=== PATIENT | female | born 1970 | race Caucasian/White ===

== ENCOUNTER 2016-08-14 09:24 | Emergency (ER) | payer BC, OTHER ==
[~2016-08-14] VITALS: Ht 152.4 cm; Wt 86.2 kg
[2016-08-14 09:32] VITALS: TEMP 36.9; Ht 152.4 cm; Wt 86.2 kg
[2016-08-14] MEDS ORDERED: SODIUM CHLORIDE 0.9% 1000ML 500 ML IV STA (09:38)
[2016-08-14] MEDS ORDERED: MECLIZINE HCL 25 MG TAB PO STA (09:38)
[2016-08-14 09:46] VITALS: O2SAT 100
[2016-08-14 10:16] LABS: URINE APPEARANCE CLEAR (CLEAR); URINE BILIRUBIN NEG (NEG); URINE COLOR YELLOW; URINE NITRITE NEG (NEG); URINE PH 7.5 (4.5-7.5); URINE SPECIFIC GRAVITY 1.003 (1.000-1.030); UROBILINOGEN NEG (NEG); ZZUR CULT IF INDIC CLEAN CATCH NO
[2016-08-14 10:19] LABS: MANUAL MICROSCOPIC REQUIRED? NO; REVIEW REQ? NO
[2016-08-14] MEDS ORDERED: [UNRECOGNIZED DRUG - CODE] (10:26)
[2016-08-14] MEDS ORDERED: CLR10 PO (10:26)
[2016-08-14] MEDS ORDERED: CALC500C70 PO (10:26)
[2016-08-14] MEDS ORDERED: MULT-506 PO (10:26)
[2016-08-14] MEDS ORDERED: OMEG10002 (10:26)
--- NOTE | 2016-08-14 10:41 | EMERGENCY ROOM VISIT NOTE ---
History Report prepared by Mattibracheal: Nayan Staples Under the Supervision of: Dr. Bulmaro Villasenor M.D. 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 She describes a room-spinning sensation, including when her eyes are closed. The patient was also feeling lightheadedness concurrently. She did not lose consciousness. She also complains of some nausea and a constant headache for the past week. The headache is mostly frontal. Headaches are common for her. She notes that the air "feels heavy." She denies any fevers, chest pain, cough, congestion, sore throat, rhinorrhea, vomiting, or diarrhea. 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 The patient started to feel better in the ambulance en route to the ED, but still doesn't feel right. The patient has a history of vertigo but does not feel that she is having vertigo symptoms. She finished a course of antibiotics for otitis media recently. Source of History: patient Onset: 1.5 hours ASSISTANT OFFICE MANAGER Position: other (global) Quality: other (dizziness) Timing: other (improving) Associated Symptoms: + headache, No LOC, No chest pain, No cough, No diarrhea, No fevers, No sorethroat, No vomiting Review of Systems See HPI for pertinent positives & negatives. A total of 10 systems reviewed and were otherwise negative. Past Medical & Surgical Medical Problems: (1) Otitis media (2) Vertigo Family History No pertinent family history Social History Occupation Status: employed Current/Historical Medications Scheduled Calcium/Vitamin D (Os-Horacio 500 Plus D), 1 TAB PO DAILY Loratadine (Claritin), 10 MG PO DAILY Meclizine HCl (Meclizine HCl), 1-2 TAB PO Q6H Multivitamin (Multivitamin), 1 TAB PO DAILY Miscellaneous Medications [place]-3 Fatty Acids (Fish Oil) Stannous Fluoride (S[employer]) Allergies Coded Allergies: No Known Allergies (Verified Allergy, Unknown, 08/24/02) Uncoded Allergies: N (Allergy, Unknown, 08/24/02) Physical Exam Vital Signs Date Time Temp Pulse Resp B/P Pulse Ox O2 Delivery O2 Flow Rate FiO2 2/3/17 13:03 102 15 166/97 90 Room Air 08/14/16 12:42 58 20 118/80 08/14/16 12:41 55 126/78 63 114/81 58 118/80 08/14/16 11:54 56 16 08/14/16 11:28 91/63 08/14/16 11:24 57 15 08/14/16 10:58 109/70 08/14/16 10:54 62 19 08/14/16 10:52 90/62 08/14/16 09:56 65 08/14/16 09:54 65 17 08/14/16 09:47 120/77 08/14/16 09:46 100 Room Air 08/14/16 09:36 66 136/87 69 135/87 85 149/97 08/14/16 09:32 36.9 66 20 136/87 100 Room Air Physical Exam GENERAL: Patient is in no acute distress. HEENT: No acute trauma, normocephalic atraumatic, mucous membranes moist, no nasal congestion, no scleral icterus, no nystagmus, right TM without fluid or infection, left TM without infection or fluid, myringotomy tube in position. NECK: No stridor, no adenopathy, no meningismus, trachea is midline. LUNGS: Clear to auscultation bilaterally, no wheeze, no rhonchi, breath sounds equal. HEART: Without murmurs gallops or rubs, regular rate and rhythm. ABDOMEN: Soft, nontender, bowel sounds positive, no hernias, no peritonitis. EXTREMITIES: No cyanosis or edema, full range of motion of all the joints without pain or difficulty, no signs for acute trauma. NEUROLOGIC: Oriented x 3, no acute motor or sensory deficits, no focal weakness , no cerebellar deficits or pronator drift, no facial droop or speech slur. SKIN: No rash, no jaundice, no diaphoresis. Medical Decision & Procedures ER Provider Diagnostic Interpretation: Orthostatic vital signs are negative. CT results as stated below per my review and radiologist interpretation: CT HEAD WITHOUT CONTRAST (CT) CLINICAL HISTORY: Altered mental status and weakness. COMPARISON STUDY: No previous studies for comparison. TECHNIQUE: Axial CT of the brain is performed from the vertex to the skull base. IV contrast was not administered for this examination. CT DOSE: 690.05 mGycm FINDINGS: No intra or extra-axial mass lesions are visualized. There is no CT evidence of acute cortical infarction. There is no evidence of midline shift. There is no acute hemorrhage. No calvarial fractures are visualized. There is no evidence of pathologic ventricular dilatation. There is no evidence of acute sinusitis IMPRESSION: No acute intracranial findings Electronically signed by: Eduardo Cristobal M.D. 08/14/2016 10:55 AM Dictated Date/Time: 08/14/2016 10:54 AM Laboratory Results 08/14/16 10:15 Red Blood Count 3.88, Mean Corpuscular Volume 94.3, Mean Corpuscular Hemoglobin 32.7, Mean Corpuscular Hemoglobin Concent 34.7, Mean Platelet Volume 8.8, Neutrophils (%) (Auto) 46.8, Lymphocytes (%) (Auto) 43.1, Monocytes (%) (Auto) 7.5, Eosinophils (%) (Auto) 2.1, Basophils (%) (Auto) 0.2, Neutrophils # (Auto) 4.95, Lymphocytes # (Auto) 4.55, Monocytes # (Auto) 0.79, Eosinophils # (Auto) 0.22, Basophils # (Auto) 0.02 08/14/16 10:15 Test 08/14/16 09:46 08/14/16 10:15 Urine Color YELLOW Urine Appearance CLEAR (CLEAR) Urine pH 7.5 (4.5-7.5) Urine Specific [place] 1.003 (1.000-1.030) Urine Protein NEG (NEG) Urine Glucose (UA) NEG (NEG) Urine Ketones NEG (NEG) Urine Occult Blood NEG (NEG) Urine Nitrite NEG (NEG) Urine Bilirubin NEG (NEG) Urine Urobilinogen NEG (NEG) Urine Leukocyte Esterase NEG (NEG) White Blood Count 10.56 K/uL (4.8-10.8) Red Blood Count 3.88 M/uL (4.2-5.4) Hemoglobin 12.7 g/dL (12.0-16.0) Hematocrit 36.6 % (37-47) Mean Corpuscular Volume 94.3 fL (80-100) Mean Corpuscular Hemoglobin 32.7 pg (25-34) Mean Corpuscular Hemoglobin Concent 34.7 g/dl (32-36) Platelet Count 267 K/uL (130-400) Mean Platelet Volume 8.8 fL (7.4-10.4) Neutrophils (%) (Auto) 46.8 % Lymphocytes (%) (Auto) 43.1 % Monocytes (%) (Auto) 7.5 % Eosinophils (%) (Auto) 2.1 % Basophils (%) (Auto) 0.2 % Neutrophils # (Auto) 4.95 K/uL (1.4-6.5) Lymphocytes # (Auto) 4.55 K/uL (1.2-3.4) Monocytes # (Auto) 0.79 K/uL (0.11-0.59) Eosinophils # (Auto) 0.22 K/uL (0-0.5) Basophils # (Auto) 0.02 K/uL (0-0.2) RDW Standard Deviation 50.5 fL (36.4-46.3) RDW Coefficient of Variation 14.8 % (11.5-14.5) Immature Granulocyte % (Auto) 0.3 % Immature Granulocyte # (Auto) 0.03 K/uL (0.00-0.02) Anion Gap 11.0 mmol/L (3-11) Est Creatinine Clear Calc Drug Dose 114.3 ml/min Estimated GFR () 126.7 Estimated GFR (Non- 109.3 BUN/Creatinine Ratio 25.2 (10-20) Calcium Level 8.5 mg/dl (8.5-10.1) Total Bilirubin 0.3 mg/dl (0.2-1) Aspartate Amino Transf (AST/SGOT) 13 U/L (15-37) Alanine Aminotransferase (ALT/SGPT) 18 U/L (12-78) Alkaline Phosphatase 65 U/L (45-117) Total Protein 6.6 gm/dl (6.4-8.2) Albumin 3.6 gm/dl (3.4-5.0) Globulin 3.0 gm/dl (2.5-4.0) Albumin/Globulin Ratio 1.2 (0.9-2) Thyroid Stimulating Hormone (TSH) 2.010 uIu/ml (0.300-4.500) Laboratory results reviewed by me. Medications Administered Medications (Trade) Dose Ordered Sig/Monalisa Route Start Time Stop Time Status Last Admin Dose Admin Sodium Chloride (Nss 1000ml) 500 ml @ 999 mls/hr Q31M STAT IV 2/17 09:38 08/14/16 10:08 DC 08/14/16 09:38 999 MLS/HR Meclizine HCl (Antivert Tab) 25 mg NOW STAT PO 08/14/16 09:38 08/14/16 09:40 DC 08/14/16 10:19 25 MG ECG Indication: other (dizzy/lightheaded) Rate (beats per minute): 68 Rhythm: normal sinus Findings: no acute ischemic change, no ectopy ED Course 09: The patient was evaluated in room C6. A complete history and physical exam was performed. 0938: Antivert 25 mg PO, NSS 500 ml @ 999 mls/hr. 1213: Reassessed the patient. She is feeling better. I discussed the findings with her. She verbalized understanding and agreement of the treatment plan. The patient is ready for discharge. Medical Decision Differential diagnosis includes dehydration, vertigo, stroke, intracranial bleeding, UTI, anemia, electrolyte imbalance, dysrhythmia. There is no leukocytosis or concerning anemia. No significant electrolyte abnormality, kidney failure or hepatitis. The patient appears to be in a euthyroid state. Urinalysis does not show infection. Brain CT shows no acute bleed or mass effect. EKG shows a sinus rhythm, no acute ischemia. Orthostatic vital signs were negative. On exam, there were no focal neurologic deficits. The patient was not toxic or febrile. Patient received IV saline and oral meclizine, she seems to feel improved. Her blood pressure has been at times slightly low, mostly when she is lying still and resting. She does not have a low blood pressure when stimulated or when standing. I do not think the somewhat lower blood pressure is an issue for her. The patient is going to be discharged with some meclizine, rest and hydration were encouraged. If worsening, she can return. Impression Primary Impression: Near syncope Additional Impression: Vertigo Scribe Attestation The scribe's documentation has been prepared under my direction and personally reviewed by me in its entirety. I confirm that the note above accurately reflects all work, treatment, procedures, and medical decision making performed by me. Departure Information Dispostion Home / Self-Care Prescriptions Meclizine HCl (Meclizine HCl) 25 Mg Tab 1-2 TAB PO Q6H, #16 TAB Prov: Bulmaro Villasenor M.D. 08/14/16 Referrals No Doctor, Assigned (PCP) Forms HOME CARE DOCUMENTATION FORM, IMPORTANT VISIT INFORMATION Additional Instructions rest fluids see your doctor next week for a reheck try meclizine 1 tab every 6 hours as needed for vertigo symptoms return if worsening all testing and imaging today was ok Problem Qualifiers
[2016-08-14 10:43] LABS: BASO % 0.2 %; BASO ABS # 0.02 K/uL (0-0.2); COMPLETE YES; EOS % 2.1 %; HEMATOCRIT 36.6 % (37-47); IG% 0.3 %; LYMPH % 43.1 %; LYMPH ABS # 4.55 K/uL (1.2-3.4); MEAN CELL VOLUME 94.3 fL (80-100); MEAN CORPUSCULAR HEMOGLOBIN 32.7 pg (25-34); MEAN CORPUSCULAR HGB CONC 34.7 g/dl (32-36); MEAN PLATELET VOLUME 8.8 fL (7.4-10.4); MONO % 7.5 %; NEUT % 46.8 %; PLATELET COUNT 267 K/uL (130-400); RED BLOOD COUNT 3.88 M/uL (4.2-5.4); WHITE BLOOD COUNT 10.56 K/uL (4.8-10.8)
--- NOTE | 2016-08-14 10:57 | DIAGNOSTIC IMAGING REPORT ---
CT HEAD WITHOUT CONTRAST (CT) CLINICAL HISTORY: Altered mental status and weakness. COMPARISON STUDY: No previous studies for comparison. TECHNIQUE: Axial CT of the brain is performed from the vertex to the skull base. IV contrast was not administered for this examination. CT DOSE: 690.05 mGycm FINDINGS: No intra or extra-axial mass lesions are visualized. There is no CT evidence of acute cortical infarction. There is no evidence of midline shift. There is no acute hemorrhage. No calvarial fractures are visualized. There is no evidence of pathologic ventricular dilatation. There is no evidence of acute sinusitis IMPRESSION: No acute intracranial findings Electronically signed by: Eduardo Cristobal M.D. 08/14/2016 10:55 AM Dictated Date/Time: 08/14/2016 10:54 AM
[2016-08-14 11:15] LABS: BUN/CREATININE RATIO 25.2 (10-20); CALCIUM 8.5 mg/dl (8.5-10.1); CREATININE 0.6 mg/dl (0.60-1.20); POTASSIUM 3.6 mmol/L (3.5-5.1)
[2016-08-14 11:25] LABS: ALB/GLOB RATIO 1.2 (0.9-2); THYROID STIMULATING HORMONE 2.01 uIu/ml (0.300-4.500)
[2016-08-14] MEDS ORDERED: ANT25 PO (12:22)
[2016-08-14 13:03] VITALS: BP 166/97; PULSE 102; O2SAT 90
== END 2016-08-14 12:44 | disposition home or self-care (01) ==
LOC: EDBD 09:24 → C.EDC 09:25
DX: R55 Syncope and collapse (principal); R42 Dizziness and giddiness; R51 Headache; R11.0 Nausea; Z79.899 Other long term (current) drug therapy